=== PATIENT | female | born 1965 | race Caucasian/White ===

== ENCOUNTER 2019-10-14 13:44 | Inpatient (IN) | payer MEDICAID, OTHER ==
[~2019-10-14] VITALS: Ht 157.5 cm; Wt 65.9 kg
--- NOTE | 2019-10-14 13:50 | NUR ---
AAOX3, BIBRA [address] c/o bilateral lower extremities pain, +bruise, s/p fall per patient report x few days ago. Denies ko. RR is even and unlabored with nad noted. skin is warm and dry. BS 205mg/DL in the field. Awaiting md for eval.
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
[2019-10-14] MEDS ORDERED: ONDANSETRON HCL/PF 4 MG/2 ML VIAL IVP ONE (14:30)
[2019-10-14] MEDS ORDERED: MORPHINE SULFATE INJ 2 MG/ML DISP.SYRIN IV ONE (14:30)
[2019-10-14] MEDS ORDERED: ONDANSETRON HCL/PF 4 MG/2 ML VIAL ONE (14:32)
[2019-10-14] MEDS ORDERED: MORPHINE SULFATE INJ 4 MG/ML DISP.SYRIN ONE (14:33)
[2019-10-14 14:46] LABS: BASOPHILS % (AUTO) 0.2 % (0.0-2.0); HEMATOCRIT 40 % (33-45); HEMOGLOBIN 12.5 g/dL (11.5-14.8); LYMPHOCYTES # (AUTO) 0.4 /CMM (0.8-4.8); LYMPHOCYTES % (AUTO) 2.6 % (20.0-44.0); MEAN CORPUSCULAR HGB CONC 31 g/dl (31.0-36.0); MEAN CORPUSCULAR VOLUME 89 fL (82-100); MONOCYTES # (AUTO) 1.4 /CMM (0.1-1.30); MONOCYTES % (AUTO) 9.4 % (2.0-12.0); NEUTROPHILS # (AUTO) 12.8 /CMM (1.8-8.9); NEUTROPHILS % (AUTO) 87.8 % (43.0-81.0); PLATELET COUNT (AUTO) 244 /CMM (150-450); RED BLOOD CELL COUNT(AUTO) 4.49 MIL/uL (4.0-5.2); WHITE BLOOD COUNT (AUTO) 14.6 K/uL (4.3-11.0)
[2019-10-14 14:55] LABS: CALCIUM, SERUM 8.3 mg/dL (8.5-10.1); CREATININE 0.9 mg/dL (0.6-1.3); POTASSIUM 3.4 mmol/L (3.5-5.1)
--- NOTE | 2019-10-14 14:55 | NUR ---
CALLED FARHAT BEDOYA WAS PAGED BY RAIZA
[2019-10-14 15:01] LABS: BILIRUBIN,DIRECT 0.1 mg/dL (0.0-0.2); BILIRUBIN,TOTAL 0.4 mg/dL (0.2-1.0); TOTAL PROTEIN, SERUM 6.6 g/dL (6.4-8.2)
--- NOTE | 2019-10-14 15:06 | NUR ---
CONSENT FOR CONSCIOUS SEDATION FOR RIGHT KNEE CLOSE REDUCTION.
--- NOTE | 2019-10-14 15:07 | NUR ---
CALLED FOR MS BED. AND MOVE SHEET SUBMITTED TO ADMITTING.
[2019-10-14] MEDS ORDERED: PROPOFOL 20 ML IV ONE ×2 (15:10→16:27)
--- NOTE | 2019-10-14 15:14 | NUR ---
AT BEDSIDE. PROPOFOL GIVEN BY .
--- NOTE | 2019-10-14 15:15 | NUR ---
PT IS OUT. MD DOING CLOSED REDUCTION ON R KNEE
--- NOTE | 2019-10-14 15:17 | NUR ---
REDUCTION COMPLETED WITHOUT ANY SUCCESS.
--- NOTE | 2019-10-14 15:21 | NUR ---
PT IS AWAKE. NOT IN RESP DISTRESS.
--- NOTE | 2019-10-14 15:27 | NUR ---
LIZZETTE (FOSTER SISTER) FOR UPDATES [phone]
[2019-10-14] MEDS ORDERED: PROPOFOL 200 MG/20 ML VIAL IV ONE (15:30)
[2019-10-14] MEDS ORDERED: DOCU-141 PO (16:17)
[2019-10-14] MEDS ORDERED: BUSP15TA3 PO (16:17)
[2019-10-14] MEDS ORDERED: OXYC-128 PO (16:17)
[2019-10-14] MEDS ORDERED: FLUO20CA36 PO (16:17)
[2019-10-14] MEDS ORDERED: ARIP10TA9 PO (16:17)
[2019-10-14] MEDS ORDERED: LEVO125T PO (16:17)
[2019-10-14] MEDS ORDERED: AMLO5TAB4 PO (16:17)
[2019-10-14] MEDS ORDERED: PHEN64.8 PO (16:17)
--- NOTE | 2019-10-14 16:17 | NUR ---
FACILITY CONTACT JANELL [phone]
--- NOTE | 2019-10-14 16:22 | NUR ---
FATOU BEDOYA OF DR. VALLES AT BEDSIDE FOR RIGHT KNEE CLOSE REDUCTION. TIME OUT DONE. PROPOFOL 100MG IVP X 1.
--- NOTE | 2019-10-14 16:28 | NUR ---
2ND PROPOFOL 100MG IVP GIVEN.
--- NOTE | 2019-10-14 16:28 | NUR ---
REDUCTION COMPLETED BY FATOU BEDOYA. BILAT PEDAL PULSE APPRECIATED R IS WEAKER THAN THE LEFT. EQUAL IN LENGTH NO ROTATION
--- NOTE | 2019-10-14 16:31 | NUR ---
XRAY AT BEDSIDE
--- NOTE | 2019-10-14 16:35 | NUR ---
PT IS ALREADY AWAKE. NOT IN RESP DISTRESS.
[2019-10-14] MEDS ORDERED: IOHEXOL-350 100 ML VIAL IV ONE (16:56)
[2019-10-14] MEDS ORDERED: IV NS 0.9% 250 ML IV ONE (16:56)
--- NOTE | 2019-10-14 17:45 | NUR ---
PT BACK FROM CT
--- NOTE | 2019-10-14 17:57 | NUR ---
EMT AT BEDSIDE FOR SPLINTING.
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
--- NOTE | 2019-10-14 19:28 | NUR ---
PT IS IN BED RESTING COMFORTABLY. NAD NOTED.
--- NOTE | 2019-10-14 20:28 | NUR ---
CLINICAL TRIAL ASSOCIATE L[place] ANDERSON [phone]
[2019-10-14] MEDS ORDERED: HYDROMORPHONE INJ 2 MG/ML DISP.SYRIN IV ONE (20:30)
[2019-10-14] MEDS ORDERED: HYDROMORPHONE 1 MG/1 ML DISP.SYRIN ONE (20:59)
--- NOTE | 2019-10-14 21:34 | NUR ---
DR. POWELL SPEAKING WITH JULIO CESAR MONQIUE HAT AND CAP DRYING ROOM ATTENDANT
--- NOTE | 2019-10-14 21:41 | NUR ---
Janine toledo in [facility] - 10/14/19 at 2211 by HANK PT WILL BE TRANSFERRED TO [facility] FOR HIGHER LEVEL OF CARE NUMBER FOR REPORT: [phone] AUTH FOR TRANSPORTATION: [id number]
[2019-10-14] MEDS ORDERED: IV D5/0.45 NACL 1,000 ML IV PRN (22:17)
[2019-10-14] MEDS ORDERED: Z GUARD REMEDY 2 OZ OINT TP PRN ×2 (22:30→23:45)
[2019-10-14] MEDS ORDERED: ONDANSETRON HCL/PF 4 MG/2 ML VIAL IVP PRN ×2 (22:30→23:45)
[2019-10-14] MEDS ORDERED: HYDROMORPHONE INJ 2 MG/ML DISP.SYRIN IV PRN (22:30)
[2019-10-14] MEDS ORDERED: ACETAMINOPHEN 325 MG TABLET PO PRN (22:30)
[2019-10-14] MEDS ORDERED: DOCUSATE SODIUM 100 MG CAPSULE PO PRN ×2 (22:30→23:45)
[2019-10-14] MEDS ORDERED: POTASSIUM CHLORIDE 20 MEQ TAB.PRT.SR PO ONE ×2 (23:00)
--- NOTE | 2019-10-14 23:01 | NUR ---
BED ASSIGNMENT 101
--- NOTE | 2019-10-14 23:13 | NUR ---
REPORT GIVEN TO CALEB WHITING FOR DIDIER.
--- NOTE | 2019-10-14 23:15 | NUR ---
Rec'd report from CALEB Crum for DIDIER.
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
--- NOTE | 2019-10-14 23:27 | NUR ---
PT TRANSPORTED TO UNIT ON [place] WITH EMT AND RN W/ ACLS PROTOCOL. NAD NOTED DURING TRANSPORT
[2019-10-14 23:29] VITALS: BP 133/67
--- NOTE | 2019-10-15 00:05 | NUR ---
0005 PATIENT'S RIGHT PEDAL AND POPLITEAL PULSES NOTED PER DOPPLER. RIGHT LEG NOTED SWOLLEN AND WITH SCATTERED BRUISES. PATIENT ABLE TO WIGGLE TOES WHEN PROMPTED. RIGHT FOOT WARM TO TOUCH. IMMOBILIZER IN PLACE. WILL CONTINUE TO MONITOR.
[2019-10-15] MEDS: IV D5/0.45 NACL 1,000 ML IV PRN ×2 (01:23→18:27)
[2019-10-15 04:00] VITALS: BP 164/83
--- NOTE | 2019-10-15 04:30 | NUR ---
0430 RIGHT PEDAL, POPLITEAL, AND POSTERIOR TIBIAL PULSES APPRECIATED PER DOPPLER. RIGHT LEG STILL WITH SWELLING NOTED. WARM TO TOUCH WHEN CHECKED. IMMOBILIZER REMAINS IN PLACE. PATIENT ASLEEP AT THIS TIME. EASILY AROUSABLE TO NAME. NO COMPLAIN OF PAIN WHEN ASKED. NO C/O SOB OR DIFFICULTY BREATHING.
--- NOTE | 2019-10-15 06:54 | NUR ---
RN CLOSING NOTES: Pt remained stable throughout shift. No acute changes noted. On isolation for R/O Covid. On 2LPM NC, no SOB or respiratory distress noted. NPO except meds. IV site on LAC #18 patent with D5 1/2NS infusing at 75 ml/hr. Kept clean/dry. All meds administered as ordered. Safety measures in place. Will endorse to CALEB Daigle for DIDIER.
[2019-10-15 07:58] VITALS: BP 150/93
--- NOTE | 2019-10-15 08:00 | NUR ---
MS RN AM NOTES RECEIVED PT AWAKE, ALERT AND ORIENTED. FACE MASK ON FOR COVID PRECAUTION. PATIENT WITH IMMOBILIZER ON RIGHT LOWER EXTREMITY. DX RIGHT KNEE DISLOCATION/FRACTURE, RIGHT ANKLE FRACTURE. WITH RIGHT LEG WITH SWELLING AND BRUISING. PATIENT WITH C/O PAIN ON AFFECTED EXTREMITY. ABLE TO WIGGLE TOES WITHOUT DIFFICULTY. LEG WARM TO TOUCH. UNABLE TO APPRECIATE RIGHT LEG PULSES PER PALPATION. FOR RT PEDAL AND POPLITEAL PULSE CHECK VIA DOPPLER CHECK EVERY 4 HRS. PATIENT REFUSING TO TURN FOR SKIN CHECK. CALL LIGHT PLACED WITHIN REACH AND INSTRUCTED TO CALL FOR ASSISTANCE.
--- NOTE | 2019-10-15 08:30 | NUR ---
PATIENT'S RIGHT PEDAL AND POPLITEAL PULSES PRESENT WHEN CHECKED WITH DOPPLER. WITH RIGHT LEG SWELLING AND WITH SCATTERED PURPLISH BRUISES. PATIENT ABLE TO WIGGLE TOES WHEN PROMPTED. RIGHT FOOT WARM TO TOUCH. RT KNEE IMMOBILIZER IN PLACE. WILL MONITOR.
[2019-10-15] MEDS: LEVOTHYROXINE SODIUM 125 MCG TABLET PO SCH (08:56)
[2019-10-15] MEDS: AMLODIPINE BESYLATE 5 MG TABLET PO SCH (08:56)
[2019-10-15] MEDS: PHENOBARBITAL 30 MG TABLET PO SCH (08:57)
[2019-10-15] MEDS: busPIRone 5 MG TABLET PO SCH ×2 (08:57→16:44)
[2019-10-15] MEDS: FLUOXETINE HCL 20 MG CAPSULE PO SCH (08:57)
[2019-10-15] MEDS: ARIPIPRAZOLE 5 MG TABLET PO SCH ×2 (08:57→16:44)
[2019-10-15] MEDS: HYDROMORPHONE INJ 2 MG/ML DISP.SYRIN IV PRN ×2 (08:58→18:13)
[2019-10-15] MEDS ORDERED: AMLODIPINE BESYLATE 5 MG TABLET PO SCH (09:00)
[2019-10-15] MEDS ORDERED: FLUOXETINE HCL 20 MG CAPSULE PO SCH (09:00)
[2019-10-15] MEDS ORDERED: LEVOTHYROXINE SODIUM 125 MCG TABLET PO SCH (09:00)
--- NOTE | 2019-10-15 11:06 | NUR ---
Acid Regenerator spoke with Delia from Case Management about this patient. Pt is not homeless and currently resides at [facility]. No social worker palliative care needs are requested at this time. medical staff services manager to remain available for support as needed.
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
[2019-10-15 12:00] VITALS: BP 130/72
[2019-10-15 12:37] LABS: BASOPHILS % (AUTO) 0.1 % (0.0-2.0); EOSINOPHILS % (AUTO) 1.2 % (0.0-6.0); HEMATOCRIT 42 % (33-45); HEMOGLOBIN 13.2 g/dL (11.5-14.8); LYMPHOCYTES % (AUTO) 10.4 % (20.0-44.0); MEAN CORPUSCULAR HGB CONC 32 g/dl (31.0-36.0); MEAN CORPUSCULAR VOLUME 88 fL (82-100); MONOCYTES # (AUTO) 1.3 /CMM (0.1-1.30); MONOCYTES % (AUTO) 13.8 % (2.0-12.0); NEUTROPHILS # (AUTO) 7.1 /CMM (1.8-8.9); NEUTROPHILS % (AUTO) 74.5 % (43.0-81.0); PLATELET COUNT (AUTO) 234 /CMM (150-450); RED BLOOD CELL COUNT(AUTO) 4.76 MIL/uL (4.0-5.2); WHITE BLOOD COUNT (AUTO) 9.6 K/uL (4.3-11.0)
[2019-10-15 12:52] LABS: ALBUMIN 2.5 g/dL (3.4-5.0); BILIRUBIN,TOTAL 0.3 mg/dL (0.2-1.0); CALCIUM, SERUM 7.7 mg/dL (8.5-10.1); CREATININE 0.7 mg/dL (0.6-1.3); MAGNESIUM 2.2 mg/dL (1.8-2.4); PHOSPHORUS 3.3 mg/dL (2.5-4.9); POTASSIUM 4.2 mmol/L (3.5-5.1); TOTAL PROTEIN, SERUM 5.7 g/dL (6.4-8.2)
--- NOTE | 2019-10-15 12:58 | NUR ---
DR SEGUNDO (VASCULAR SURGEON) CALLED AND RELAYED CTA OF THE KNEE RESULT. DR SEGUNDO STATED TO WAIT TILL PT IS COVID NEGATIVE AND THAT IS THE TIME HE WILL CHECK ON THE PT. DR SEGUNDO STATED THAT HE WILL CALL ON JENNIFER BLACKMON NP (HOSPITALIST FOR TODAY) AND WILL NOTIFY HER.
[2019-10-15 13:00] LABS: THYROID STIMULATING HORMONE 3.731 uIU/mL (0.358-3.74)
--- NOTE | 2019-10-15 15:00 | NUR ---
PT WAS SEEN AND CHECKED BY DR SEGUNDO WHO STATED THAT HE'S NOT GOING TO DO ANY PROCEDURE FOR NOW AND THAT HE SPOKED TO WELL WHO STATED THAT DR VALLES IS NOT GOING TO DO ANY SX FOR NOW EITHER. WILL RESUME PT'S CARDIAC DIET.
[2019-10-15] MEDS: ACETAMINOPHEN 325 MG TABLET PO PRN (16:44)
--- NOTE | 2019-10-15 18:47 | NUR ---
PT RESTING IN BED SLEEPING BUT AROUSABLE.PAIN MGT EFFECTIVE. ATE 100%DINNER. PT HAS EPISODES OF RESTLESSNESS(HX OF SCHIZO) SCREAMING THAT SHE NEEDS A TAXI TO GO HOME. REORIENTATION GIVEN NEEDED THEN SHE CALMS DOWN.CALL LIGHT PLACED WITHIN REACH.
--- NOTE | 2019-10-15 19:15 | NUR ---
RN OPENING NOTES: RECEIVED PT A/OX4 IN BED RESTING COMFORTABLY. PATIENT IN NO S/SX OF ACUTE DISTRESS AT THIS TIME. NO SOB NOTED. PATIENT'S BREATHING IS EVEN AND UNLABORED. PATIENT IS ON RA; TOLERATING WELL.PATIENT ON MED SRUG STATUS. NOTED IV SITE ON L AC #18; PATENT IN INTACT,NO S/S OF INFECTION OR INFILTRATION; WITH RUNNING IVF OF D5 1/2 NS @75MLS/HR PATIENT IS BEDBOUD WITH R LEG BRACE SPLINT. PATIENT ON CARDIAC DIET. SAFETY MEASURES HAVE BEEN PROVIDED AND IMPLEMENTED. PATIENT BED ALARM IS ON. HEAD OF BED ELEVATED. BED IS LOCKED, IN LOWEST POSITION AND SIDE RAILS UP. CALL LIGHT WITHIN REACH OF THE PATIENT. ISOLATION PRECAUTIONS IN PLACE. WILL CONTINUE TO MONITOR AND REASSESS FOR ANY CHANGES.
--- NOTE | 2019-10-15 19:44 | NUR ---
RN NOTES CALLED [facility] @[phone], SPOKE WITH JULIO CESAR INFORMED THAT PATIENT'S COVID TEST CAME OUT NEGATIVE @1601. VERIFIED TO FROM MD IF PATIENT CAN ALREADY BE TRANSFERRED TO MED SURG UNIT AND CHANGE STATUS FROM TELE TO M/S . HE SAID YES. WILL MAKE ORDER FOR CHANGE OF STATUS.
[2019-10-15 20:00] VITALS: BP 129/73
--- NOTE | 2019-10-15 21:21 | NUR ---
TELE/RN NOTES PROVIDED REPORT TO COREY. PATIENT IS ALERT AND ORIENTED X4 UKRAINIAN SPEAKING. PATIENT MOST RECENT V/S TAKEN AND RECORDED BP(129/73 ) T (98.1) HR (77) RR (20). PATIENT ON RA WITH IV LINE @ L AC #18 ; RUNNING IVF OF D5 1/2 NS AT 75 ML/HR ON INFUSING WELL. PT WITH R LEG BRACE SPLINT. PATIENT TRANSFERRED TO MEDICAL SURGICAL ROOM 321 BED #2 VIA MEDICAL BED. ALL PATIENT BELONGINGS TRANSFERRED WITH THE PATIENT. PATIENT SAFETY WAS MAINTAINED, MIGEL ELLIS RECEIVED THE PATIENT AND WILL CONTINUE CARE.
--- NOTE | 2019-10-15 21:30 | NUR ---
MS/RN NOTES: RECEIVED REPORT FROM ROSA RN. PT ARRIVED OT THE UNIT VIA GURNEY. PATIENT IS ALERT AND ORIENTED X4. ROMANIAN SPEAKING. CONTRABAND PLACED IN THE CABINET. INITIAL V/S TAKEN AND WNL. PATIENT ON RA WITH IV LINE @ L AC #18 ; RUNNING IVF OF D5 1/2 NS AT 75 ML/HR ON INFUSING WELL. R LEG BRACE SPLINT PRESENT. ALL PATIENT BELONGINGS CHECKED BY TRAY SERVER. PATIENT SAFETY WAS MAINTAINED, BE DIN LOW, LOCKED POSITION WITH SR UP X2. WILL CONTINUE CARE.
[2019-10-15 22:51] VITALS: BP 129/72
--- NOTE | 2019-10-16 03:00 | NUR ---
MS RN NOTES RECEIVED PATIENT ON SOUND ASLEEP,BREATHING EASY,NO SOB.KEPT WARM AND COMFORTABLE.WILL CONTINUE TO MONITOR.
--- NOTE | 2019-10-16 07:30 | NUR ---
MS/RN NOTE THE PATIENT IS RECEIVED IN BED. THE PATIENT IS ALERT AND ORIENTED X3. RECEIVING OXYGEN AT 2L/MIN VIA [employer] CANNULA AND DENIES SOB. RESPIRATION REGULAR AND UNLABORED. DENIES PAIN. NOTED RIGHT LEFT WITH BRACE. LEG WARM TO TOUCH. RIGHT LOWER LEG AND KNEE SWOLLEN. PATIENT DENIES TINGLING OR NUMBNESS ON THE EXTREMITIES. LAC IV PATENT AND D5 1/2 NS INFUSING AT 75ML/HR. NO S/S INFILTRATION NOTED. BED LOW AND LOCKED. SIDE RAILS UP X3. CALL LIGHT WITHIN EACH. WILL CONTINUE TO MONITOR.
--- NOTE | 2019-10-16 07:31 | NUR ---
MS/RN CLOSING NOTES: PT REMAINS ALERT AND ORIENTED X4. NO SOB NOTED. NO S/S OF DISTRESS. BREATHING EVEN AND UNLABORED. ON ROOM AIR. IV LINE @ L AC #18 ; RUNNING IVF OF D5 1/2 NS AT 75 ML/HR ON INFUSING WELL. R LEG BRACE SPLINT PRESENT. POPLITEAL PULSE AND PEDAL PULSE CHECKED Q4HRS ORDERED WITH DOPPLER, PT THREATENING TO LEAVE AMA. PATIENT SAFETY WAS MAINTAINED, ENDORSED TO DAY SHIFT RN FOR DIDIER.
[2019-10-16 07:35] LABS: BASOPHILS % (AUTO) 0.2 % (0.0-2.0); EOSINOPHILS % (AUTO) 2.8 % (0.0-6.0); HEMATOCRIT 42 % (33-45); HEMOGLOBIN 13.6 g/dL (11.5-14.8); LYMPHOCYTES # (AUTO) 1.1 /CMM (0.8-4.8); LYMPHOCYTES % (AUTO) 11.3 % (20.0-44.0); MEAN CORPUSCULAR HGB CONC 32 g/dl (31.0-36.0); MEAN CORPUSCULAR VOLUME 88 fL (82-100); MONOCYTES # (AUTO) 1.1 /CMM (0.1-1.30); MONOCYTES % (AUTO) 12.3 % (2.0-12.0); NEUTROPHILS # (AUTO) 6.9 /CMM (1.8-8.9); NEUTROPHILS % (AUTO) 73.4 % (43.0-81.0); PLATELET COUNT (AUTO) 248 /CMM (150-450); RED BLOOD CELL COUNT(AUTO) 4.82 MIL/uL (4.0-5.2); WHITE BLOOD COUNT (AUTO) 9.4 K/uL (4.3-11.0)
[2019-10-16 07:56] LABS: CALCIUM, SERUM 8.1 mg/dL (8.5-10.1); CREATININE 0.5 mg/dL (0.6-1.3); MAGNESIUM 1.9 mg/dL (1.8-2.4); PHOSPHORUS 3.1 mg/dL (2.5-4.9); POTASSIUM 4.1 mmol/L (3.5-5.1)
[2019-10-16 08:00] VITALS: BP 165/76
--- NOTE | 2019-10-16 08:00 | NUR ---
MS/RN NOTE RIGHT LEG WARM TO TOUCH. ABLE TO WIGGLE TOES WITH NO DIFFICULTY. DENIES NUMBNESS OR TINGLING IN RIGHT LEG. USING DOPPLER CHECKED FOR PEDAL PULSES AND NOTED DORSALIS PEDAL PULSES PRESENT BILATERALLY. NO NEURO DEFICIENCY NOTED ON ANY OF THE EXTREMITIES. WILL CONTINUE TO MONITOR.
[2019-10-16] MEDS: FLUOXETINE HCL 20 MG CAPSULE PO SCH (09:21)
[2019-10-16] MEDS: ARIPIPRAZOLE 5 MG TABLET PO SCH ×2 (09:21→16:49)
[2019-10-16] MEDS: PHENOBARBITAL 30 MG TABLET PO SCH (09:21)
[2019-10-16] MEDS: LEVOTHYROXINE SODIUM 125 MCG TABLET PO SCH (09:21)
[2019-10-16] MEDS: busPIRone 5 MG TABLET PO SCH ×2 (09:21→16:49)
[2019-10-16] MEDS: AMLODIPINE BESYLATE 5 MG TABLET PO SCH (09:22)
[2019-10-16 16:00] VITALS: BP 143/84
[2019-10-16] MEDS: IV D5/0.45 NACL 1,000 ML IV PRN (16:57)
[2019-10-16] MEDS: HYDROMORPHONE INJ 2 MG/ML DISP.SYRIN IV PRN (16:57)
--- NOTE | 2019-10-16 18:01 | NUR ---
MS/RN NOTE THE PATIENT IS ALERT AND ORIENTED X3. IN ROOM AIR AND SATURATION IS AT 95%. RESPIRATION REGULAR AND UNLABORED. DENIES SOB. DENIES PAIN. RIGHT LEG WITH A BRACE. RIGHT LEG WARM TO TOUCH. ABLE TO WIGGLE TOES WITH NO DIFFICULTY. DENIES NUMBNESS OR TINGLING IN RIGHT LEG. USING DOPPLER CHECKED FOR PEDAL PULSES AND NOTED DORSALIS PEDAL PULSES PRESENT BILATERALLY. NO NEURO DEFICIENCY NOTED ON ANY OF THE EXTREMITIES. WILL CONTINUE TO MONITOR. LAC G 18 PATENT AND D5 1/2 NS INFUSING AT 75ML/HR. NO S/S INFILTRATION NOTED. BED LOW AND LOCKED. SIDE RAILS UP X3. CALL LIGHT WITHIN REACH. WILL ENDORSE TO COREMAKING SUPERVISOR.
--- NOTE | 2019-10-16 19:59 | NUR ---
MS RN OPENING NOTE: Patient in bed awake and alert. On room air. No SOB noted, breathing equal and unlabored. Patient is in pain. Her pain is on the right leg and rates he pain 5 on a 0-10 scale. Offered pain medication but patient refused. Leg brace noted on right leg with right foot dressing/abd pad. Leg brace intact and foot dressing is intact and dry. Noted left knee scrapes, red and black in color with no exudate. Noted BLE edema. Patient able move left and right toes. BLE cap refill <3. Legs are warm to touch. Noted left AC 18g IV access. Flushes well, patent, no redness or infiltration. Safety precaution is in place, bed is in the lowest level, bed is locked, alarm is on, side rails x2 are up, and call light is within reach. Will continue to monitor.
[2019-10-16 20:00] VITALS: BP 146/86
[2019-10-16 20:44] VITALS: BP 146/86
[2019-10-16] MEDS: ACETAMINOPHEN 325 MG TABLET PO PRN (21:52)
--- NOTE | 2019-10-16 21:52 | NUR ---
MS RN NOTE: Patient complains of right leg pain. Patient rates pain 3 on a 0-10 scale and describes it as aching. Administered PRN Tylenol per order. Will continue to monitor.
--- NOTE | 2019-10-17 | NUR ---
MS RN NOTE: Lower extremity neuro and pulse assessment. Patient is able to wiggle her toes without difficulty. Patient denies pain at this time. Right leg and right ankle immobilizer are intact. Patient denies any numbness or tingling on both extremities. Capillary refill less than 3 seconds. Pedal and dorsalis pedis pulses present bilaterally. Will continue to monitor.
--- NOTE | 2019-10-17 04:00 | NUR ---
MS RN NOTE: Lower extremity neuro and pulse check. Patient able to wiggle toes bilaterally. Right leg and right ankle immobilizer are intact. Patient denies any numbness or tingling. Cap refill less than 3 seconds. Pedal and dorsalis pedis pulses present bilaterally. Will continue to monitor.
[2019-10-17] MEDS: LEVOTHYROXINE SODIUM 125 MCG TABLET PO SCH (06:48)
[2019-10-17 07:23] LABS: BASOPHILS % (AUTO) 0.4 % (0.0-2.0); EOSINOPHILS % (AUTO) 2.3 % (0.0-6.0); HEMATOCRIT 45 % (33-45); HEMOGLOBIN 14.1 g/dL (11.5-14.8); LYMPHOCYTES # (AUTO) 0.9 /CMM (0.8-4.8); LYMPHOCYTES % (AUTO) 11.3 % (20.0-44.0); MEAN CORPUSCULAR HGB CONC 32 g/dl (31.0-36.0); MEAN CORPUSCULAR VOLUME 88 fL (82-100); MONOCYTES # (AUTO) 0.9 /CMM (0.1-1.30); MONOCYTES % (AUTO) 10.2 % (2.0-12.0); NEUTROPHILS # (AUTO) 6.4 /CMM (1.8-8.9); NEUTROPHILS % (AUTO) 75.8 % (43.0-81.0); PLATELET COUNT (AUTO) 291 /CMM (150-450); RED BLOOD CELL COUNT(AUTO) 5.07 MIL/uL (4.0-5.2); WHITE BLOOD COUNT (AUTO) 8.4 K/uL (4.3-11.0)
--- NOTE | 2019-10-17 07:24 | NUR ---
MS RN CLOSING NOTE: Patient in bed awake and alert. On room air. No SOB noted, breathing equal and unlabored. Patient able move left and right toes. BLE cap refill <3. Legs are warm to touch. Safety precaution is in place, bed is in the lowest level, bed is locked, alarm is on, side rails x2 are up, and call light is within reach. Will endorse to next shift.
[2019-10-17 07:30] LABS: CALCIUM, SERUM 8.2 mg/dL (8.5-10.1); CREATININE 0.6 mg/dL (0.6-1.3); PHOSPHORUS 3.3 mg/dL (2.5-4.9)
[2019-10-17] MEDS: ARIPIPRAZOLE 5 MG TABLET PO SCH ×2 (08:41→16:26)
[2019-10-17] MEDS: busPIRone 5 MG TABLET PO SCH ×2 (08:42→16:26)
[2019-10-17] MEDS: AMLODIPINE BESYLATE 5 MG TABLET PO SCH (08:43)
[2019-10-17] MEDS: FLUOXETINE HCL 20 MG CAPSULE PO SCH (08:43)
[2019-10-17] MEDS: PHENOBARBITAL 30 MG TABLET PO SCH (08:43)
[2019-10-17] MEDS: HYDROMORPHONE INJ 2 MG/ML DISP.SYRIN IV PRN ×2 (14:57→21:52)
--- NOTE | 2019-10-17 17:18 | NUR ---
MS/RN NOTE ROGE BLACKMON IS MADE AWARE THAT THE PATIENT IS NOT ON ANY BLOOD THINNER DESPITE VTE SCORE OF 5. PER STOCK WORKER AND DELIVERER TO FOLLOW UP WITH TREY BRADFORD. RECEIVED AN ORDER FROM SANCHEZ LAINEZ ASPIRIN 325 MG PO QD TO START TOMORROW. NOTED AND CARRIED OUT.
--- NOTE | 2019-10-17 19:00 | NUR ---
MS/RN NOTE RIGHT LEG WARM TO TOUCH. ABLE TO WIGGLE TOES WITH NO DIFFICULTY. DENIES NUMBNESS OR TINGLING IN RIGHT LEG. USING DOPPLER CHECKED FOR PEDAL PULSES AND NOTED DORSALIS PEDAL PULSES PRESENT BILATERALLY. NO NEURO DEFICIENCY NOTED ON ANY OF THE EXTREMITIES. NO ABNORMALLITIES NOTED DURING THE SHIFT.
--- NOTE | 2019-10-17 19:07 | NUR ---
RN MS OPENING NOTES RECEIVED PATIENT IN BED AWAKE ALERT AND ORIENTED X3, NOTED FORGETFUL REPEATS SAME QUESTIONS OFTEN. IMMOBOLIZER/SPLIT TO RIGHT LEG INTACT, PULSES ASSESSED WITH DOPPLER AND PRESENT AUDIBLE. IV SITE TO LEFT AC #18 G INTACT AND PATENT, IVF RUNNING ORDERED, ORIENTED TO STAFF AND CALL LIGHT AND KEPT WITHIN REACH, SAFETY PRECAUTIONS RENDERED, LOW BED AND LOCKED, BED ALARM INTACT, DENIES ANY PAIN AT THIS TIME, FLUIDS OFFERED, NEEDS REINFORCEMENT FOR PERINEAL CARE. ALL LINENS CHANGED AND PERINEAL CARE PROVIDED. WILL CONTINUE TO ASSESS AND ATTEND TO NEEDS REMAINS CLEAN DRY AND COMFORTABLE AT THIS TIME.
--- NOTE | 2019-10-17 19:07 | NUR ---
DENIES ANY TINGLING OR NUMBNESS TO RIGHT LEG AND FOOT.
[2019-10-17] MEDS: IV D5/0.45 NACL 1,000 ML IV PRN (19:24)
[2019-10-17 20:00] VITALS: BP 165/86
[2019-10-17 20:38] VITALS: BP 166/86
--- NOTE | 2019-10-17 21:52 | NUR ---
rn ms notes patient complained of pain to right leg states 10/ can i have a pain shot. dilaudid prn offered as ordered, vs wnl , given as ordered, patient repositioned. medication wasted, discarded and recorded witness with another rn jeanneen. will continue to monitor for effectiveness.
[2019-10-18] VITALS: BP 151/85
--- NOTE | 2019-10-18 06:44 | NUR ---
RN MS CLOSING NOTES PATIENT IN BED AWAKE ALERT AND ORIENTED X3, NOTED FORGETFUL REPEATS SAME QUESTIONS OFTEN. IMMOBOLIZER/SPLIT TO RIGHT LEG INTACT, PULSES ASSESSED WITH DOPPLER AND PRESENT, AUDIBLE DENIES ANY FEELING OF TINGLING OR NUMBNESS. IV SITE TO LEFT AC #18 G INTACT AND PATENT, IVF RUNNING ORDERED, CALL LIGHT KEPT WITHIN REACH, SAFETY PRECAUTIONS RENDERED, LOW BED AND LOCKED, BED ALARM INTACT, DENIES ANY PAIN AT THIS TIME, FLUIDS OFFERED, NEEDS REINFORCEMENT FOR PERINEAL CARE PATIENT IS REFUSIVE ATT TIME TO PERINEAL CARE. ALL LINENS CHANGED AND PERINEAL CARE PROVIDED. WILL CONTINUE TO ASSESS AND ATTEND TO NEEDS REMAINS CLEAN DRY AND COMFORTABLE AT THIS TIME WILL ENDORSE TO NEXT SHIFT.
--- NOTE | 2019-10-18 07:15 | NUR ---
RECEIVED PATIENT AWAKE , ALERT AND ORIENTED X3 , ANXIOUS ;WILLING TO GO BACK TO FACILITY.RIGHT LEG WARM TO TOUCH. ABLE TO WIGGLE TOES WITH NO DIFFICULTY. DENIES NUMBNESS OR TINGLING IN RIGHT LEG. PEDAL PULSES AND DORSALIS PEDAL PULSES PRESENT BILATERALLY; USING DOPPLER. NO NEURO DEFICIENCY NOTED.
[2019-10-18] MEDS: LEVOTHYROXINE SODIUM 125 MCG TABLET PO SCH (07:22)
[2019-10-18 08:00] VITALS: BP 169/96
[2019-10-18] MEDS: ASPIRIN 325 MG TABLET PO SCH (08:50)
[2019-10-18] MEDS: ARIPIPRAZOLE 5 MG TABLET PO SCH ×2 (08:50→17:01)
[2019-10-18] MEDS: FLUOXETINE HCL 20 MG CAPSULE PO SCH (08:51)
[2019-10-18] MEDS: busPIRone 5 MG TABLET PO SCH ×2 (08:51→17:01)
[2019-10-18] MEDS: PHENOBARBITAL 30 MG TABLET PO SCH (08:51)
[2019-10-18] MEDS: AMLODIPINE BESYLATE 5 MG TABLET PO SCH (09:58)
--- NOTE | 2019-10-18 12:00 | NUR ---
Patient refusing to be cleaned and changed.
[2019-10-18 16:00] VITALS: BP 161/92
--- NOTE | 2019-10-18 18:41 | NUR ---
Patient resting in bed comfortably. No respiratory distress, no complain of pain. Patient changed 4 times , but refused to be cleaned. Explained that chucks needs to be changed on time ; otherwise patient will have skin breakouts. Reinforcement needed. Will endorse to next shift for DIDIER.
--- NOTE | 2019-10-18 19:07 | NUR ---
RN MS OPENING NOTES RECEIVED PATIENT IN BED AWAKE ALERT AND ORIENTED X3, NOTED FORGETFUL REPEATS SAME QUESTIONS OFTEN. IMMOBOLIZER/SPLIT TO RIGHT LEG INTACT, PULSES ASSESSED WITH DOPPLER AND PRESENT AUDIBLE.DENIES ANY TINGLING OR NUMBNESS, IV SITE TO LEFT AC #18 G INTACT AND PATENT, IVF RUNNING ORDERED, ORIENTED TO STAFF AND CALL LIGHT AND KEPT WITHIN REACH, SAFETY PRECAUTIONS RENDERED, LOW BED AND LOCKED, BED ALARM INTACT, DENIES ANY PAIN AT THIS TIME, FLUIDS OFFERED,SNACK OFFERED,WILL CONTINUE TO ASSESS AND ATTEND TO NEEDS REMAINS CLEAN DRY AND COMFORTABLE AT THIS TIME.
--- NOTE | 2019-10-18 19:27 | NUR ---
rn ms notes patient complained of pain to right leg states 10/12 can i have a pain shot. vs taken wnl. dilaudid given as ordered, witnessed and wasted with another rn antonette. will continue to monitor for effectiveness, lights dimmed, tv is on.
[2019-10-18] MEDS: HYDROMORPHONE INJ 2 MG/ML DISP.SYRIN IV PRN (19:28)
[2019-10-18] MEDS: IV D5/0.45 NACL 1,000 ML IV PRN (19:34)
[2019-10-18 20:22] VITALS: BP 158/89
[2019-10-18 20:40] VITALS: BP 158/89
[2019-10-18] MEDS: ACETAMINOPHEN 325 MG TABLET PO PRN (22:42)
--- NOTE | 2019-10-18 22:45 | NUR ---
rn ms notes patient complained of pain to right leg, stated "5/10 can i have some pain medication". tylenol offered patient agreed, given as ordered, will continue to monitor. heat pack requested and applied to knee area. patient repositioned, and perineal care provided, will continue to monitor.
[2019-10-19] MEDS: HYDROMORPHONE INJ 2 MG/ML DISP.SYRIN IV PRN (00:32)
--- NOTE | 2019-10-19 00:35 | NUR ---
rn ms notes patient complained of pain to right leg, stated "10/10 can i have some pain medication". dilaudid given as ordered , witnessed and wasted with another rn will continue to monitor. heat pack requested and applied to knee area. patient repositioned, and perineal care provided, will continue to monitor.
--- NOTE | 2019-10-19 05:54 | NUR ---
RN MS CLOSING NOTES PATIENT IN BED AWAKE ALERT AND ORIENTED X3, NOTED FORGETFUL REPEATS SAME QUESTIONS OFTEN. IMMOBOLIZER/SPLIT TO RIGHT LEG INTACT, PULSES AND NEURO ASSESSED WITH DOPPLER ORDERED AND PRESENT AUDIBLE.DENIES ANY TINGLING OR NUMBNESS, IV SITE TO LEFT AC #18 G INTACT AND PATENT, IVF RUNNING ORDERED, CALL LIGHT KEPT WITHIN REACH, SAFETY PRECAUTIONS RENDERED, LOW BED AND LOCKED, BED ALARM INTACT, DENIES ANY PAIN AT THIS TIME, FLUIDS OFFERED,SNACK OFFERED,WILL CONTINUE TO ASSESS AND ATTEND TO NEEDS REMAINS CLEAN DRY AND COMFORTABLE AT THIS TIME AND WILL ENDORSE TO NEXT SHIFT, PATIENT WAS TRANSFERRED TO ROOM 322-1 WITH ALL PERSONAL BELONGINGS, MEDICATIONS AND CHART.
--- NOTE | 2019-10-19 05:56 | NUR ---
DOPPLER ALSO TRANSFERRED WITH PATIENT
[2019-10-19 08:00] VITALS: BP 184/89
[2019-10-19] MEDS: ARIPIPRAZOLE 5 MG TABLET PO SCH ×2 (08:33→16:29)
[2019-10-19] MEDS: ASPIRIN 325 MG TABLET PO SCH (08:33)
[2019-10-19] MEDS: FLUOXETINE HCL 20 MG CAPSULE PO SCH (08:33)
[2019-10-19] MEDS: LEVOTHYROXINE SODIUM 125 MCG TABLET PO SCH (08:34)
[2019-10-19] MEDS: PHENOBARBITAL 30 MG TABLET PO SCH (08:34)
[2019-10-19] MEDS: busPIRone 5 MG TABLET PO SCH ×2 (08:34→16:28)
[2019-10-19] MEDS: AMLODIPINE BESYLATE 5 MG TABLET PO SCH (08:35)
--- NOTE | 2019-10-19 14:00 | NUR ---
MS RN NOTES PATIENT DEMANDING TO LEAVE AMA. EXPLANATION PROVIDED OF RISKS OF LEAVING AMA DUE TO HER HEALTH CONDITION. PATIENT REFUSING TO LISTEN, DEMANDING TO LEAVE. WALKER ORDERED FROM CENTRAL SUPPLY. AMA FORM SIGNED.DONATION CLOTHS PROVIDED. MADE AWARE.
--- NOTE | 2019-10-19 14:15 | NUR ---
MS RN NOTES ENCOURAGED PATIENT TO ATTEMPT TO WALK WITH WALKER, PATIENT UNABLE TO TAKE STEPS. PATIENT AGREED CONTINUE HOSPITALIZATION. WILL CONTINUE TO MONITOR.
--- NOTE | 2019-10-19 15:30 | NUR ---
MS RN NOTES PATIENT NOTED SCREAMING AND OUT OF BED DEMANDING TO LEAVE AMA. NOTIFIED JENNIFER HEARING AID MECHANIC ORDERS OBTAINED FOR CRISIS TEAM. CALLED CRISIS TEAM. HAD CASE MANAGEMENT SPEAK TO PATIENT. WAITING FOR EVAL FROM CRISIS TEAM. PATIENT UNABLE TO AMBULATE. PATIENT REMOVED PERIPHERAL IV. WAITING FOR CRISIS TEAM.
[2019-10-19 16:00] VITALS: BP 180/74
--- NOTE | 2019-10-19 18:26 | NUR ---
SPOKE TO ALEXY CRISIS TEAM BILLING CLERK, STATES SHE WILL BE COMING TO SEE PATIENT.
--- NOTE | 2019-10-19 18:44 | NUR ---
MS RN NOTES PATIENT IN BED SLEEPING. ALL DUE MEDICATING ADMINISTERED. ALL NEEDS MET. PATIENT WITH NO PERIPHERAL IV. WILL ENDORSE CARE TO PM SHIFT.
--- NOTE | 2019-10-19 19:50 | NUR ---
MS RN OPENING NOTS PATIENT RECEIVED RESTING IN BED A/O X 3. STABLE ON RA WITH BREATHING EVEN AND UNLABORED, NO SOB NOTED. NO SIGNS OF ACUTE DISTRESS. NO IV ACCESS. SAFETY PRECAUTIONS IN PLACE WITH BED IN LOWEST POSITION, CALL LIGHT WITHIN REACH, BREAKS ON, SIDE RAILS UP. WILL CONTINUE TO MONITOR THROUGHOUT THE NIGHT.
[2019-10-19 20:00] VITALS: BP 153/79
--- NOTE | 2019-10-19 22:02 | NUR ---
MS RN NOTES RLE PULSE CHECK WITH DOPPLER, PULSE PRESENT, PATIENT ABLE TO MOVE TOES. NO COMPLAINTS OF PAIN AT THE MOMENT, JUST SLIGHT DISCOMFORT. WILL CONTINUE TO MONITOR.
[2019-10-20] MEDS: HYDROMORPHONE INJ 2 MG/ML DISP.SYRIN IV PRN ×3 (00:06→21:52)
[2019-10-20] MEDS: IV D5/0.45 NACL 1,000 ML IV PRN (00:08)
--- NOTE | 2019-10-20 06:40 | NUR ---
RN NOTES PEDAL PULSE PRESENT, PATIENT ABLE TO MOVE TOES. WILL CONTINUE TO MONITOR THROUGHOUT THE NIGHT.
--- NOTE | 2019-10-20 06:48 | NUR ---
MS RN CLOSING NOTS PATIENT RESTING IN BED A/O X 3. STABLE ON RA WITH BREATHING EVEN AND UNLABORED, NO SOB NOTED. NO SIGNS OF ACUTE DISTRESS. NO COMPLAINTS OF PAIN OR DISCOMFORT AT THE MOMENT. IV LOCATED ON L WRIST #22 RUNNING D51/2 NS @ 75 ML/HR.R LEG IMMOBILIZER NOTED AND IN PLACE. SAFETY PRECAUTIONS IN PLACE WITH BED IN LOWEST POSITION, CALL LIGHT WITHIN REACH, BREAKS ON, SIDE RAILS UP. ALL NEEDS ATTENDED TO. WILL ENDORSE TO ONCOMING SHIFT ABOUT DIDIER.
[2019-10-20] MEDS: LEVOTHYROXINE SODIUM 125 MCG TABLET PO SCH (07:18)
[2019-10-20] MEDS: ASPIRIN 325 MG TABLET PO SCH (08:17)
[2019-10-20] MEDS: ARIPIPRAZOLE 5 MG TABLET PO SCH ×2 (08:17→18:08)
[2019-10-20] MEDS: busPIRone 5 MG TABLET PO SCH ×2 (08:18→18:09)
[2019-10-20] MEDS: AMLODIPINE BESYLATE 5 MG TABLET PO SCH (08:18)
[2019-10-20] MEDS: PHENOBARBITAL 30 MG TABLET PO SCH (08:18)
[2019-10-20] MEDS: FLUOXETINE HCL 20 MG CAPSULE PO SCH (08:19)
[2019-10-20 17:51] VITALS: BP 159/83
--- NOTE | 2019-10-20 19:05 | NUR ---
MS/RN OPENING NOTES: PATIENT RECEIVED RESTING IN BED A/O X 3. VERBALLY RESPONSIVE AND ABLE TO MAKE NEEDS KNOWN. STABLE ON RA WITH BREATHING EVEN AND UNLABORED, NO SOB NOTED. NO SIGNS OF ACUTE DISTRESS. IV LOCATED ON THE LEFT WRIST #22G, INTACT PATENT AND FLUSHING WELL. SAFETY PRECAUTIONS IN PLACE WITH BED IN LOWEST POSITION, CALL LIGHT WITHIN REACH, BREAKS ON, SIDE RAILS UP. WILL CONTINUE TO MONITOR THROUGHOUT THE SHIFT.
[2019-10-20 20:00] VITALS: BP 138/72
--- NOTE | 2019-10-20 21:52 | NUR ---
MS/RN NOTES: PT COMPLAINED OF SEVER PAIN RANGING FROM 8-10. VSS. ADMINISTERED DILAUDID 1MG IVP. WILL CONTINUE TO MONITOR.
[2019-10-21] MEDS: IV D5/0.45 NACL 1,000 ML IV PRN ×2 (06:08→22:34)
[2019-10-21] MEDS: LEVOTHYROXINE SODIUM 125 MCG TABLET PO SCH (06:42)
--- NOTE | 2019-10-21 07:50 | NUR ---
MS/RN CLOSING NOTES: PATIENT REMAINS RESTING IN BED A/O X 3. NO SIGNIFICANT CHANGES IN CONDITION. STABLE ON RA WITH BREATHING EVEN AND UNLABORED, NO SOB NOTED. NO SIGNS OF ACUTE DISTRESS. IV LOCATED ON THE LEFT WRIST #22G, RUNNING D5 1/2 NS @75MLS/HR. SAFETY PRECAUTIONS IN PLACE WITH BED IN LOWEST POSITION, CALL LIGHT WITHIN REACH, BREAKS ON, SIDE RAILS UP. ENDORSED TO CALEB SPAULDING FOR DIDIER.
[2019-10-21 08:00] VITALS: BP 160/84
--- NOTE | 2019-10-21 08:31 | NUR ---
MS RN NOTES PATIENT IN BED RESTING NO SOB OR ACUTE DISTRESS NOTED. PATIENT ALERT, ORIENTED X3. WITH KNEE IMMOBILIZER. PERIPHERAL INTACT, PATENT. SAFETY MEASURES IN PLACE. WILL CONTINUE TO MONITOR.
[2019-10-21] MEDS: PHENOBARBITAL 30 MG TABLET PO SCH (08:58)
[2019-10-21] MEDS: ASPIRIN 325 MG TABLET PO SCH (08:58)
[2019-10-21] MEDS: busPIRone 5 MG TABLET PO SCH ×2 (08:58→17:34)
[2019-10-21] MEDS: FLUOXETINE HCL 20 MG CAPSULE PO SCH (08:58)
[2019-10-21] MEDS: ARIPIPRAZOLE 5 MG TABLET PO SCH ×2 (08:58→17:34)
[2019-10-21] MEDS: AMLODIPINE BESYLATE 5 MG TABLET PO SCH (08:59)
[2019-10-21] MEDS: HYDROMORPHONE INJ 2 MG/ML DISP.SYRIN IV PRN ×2 (10:15→22:30)
[2019-10-21 16:00] VITALS: BP 149/84
--- NOTE | 2019-10-21 18:46 | NUR ---
MS RN NOTES PATIENT IN BED RESTING NO SOB OR ACUTE DISTRESS NOTED. ALL DUE MEDICATIONS ADMINISTERED. ALL NEEDS MET. PATIENT AWAITING FOR PLACEMENT. WILL ENDORSE CARE TO PM SHIFT.
--- NOTE | 2019-10-21 19:15 | NUR ---
PT MOVED TO ROOM 206-1 FROM ROOM 322-1
--- NOTE | 2019-10-21 19:35 | NUR ---
RN OPENING NOTES PT RECEIVED, A/OX3. ON ROOM AIR, BREATHING EVEN AND UNLABORED. DENIES SOB AND PAIN AT THIS TIME. IN NO ACUTE DISTRESS. HOB ELEVATED 30 DEGREES. RIGHT LEG IN IMMOBILIZER. BED IN LOW/LOCKED POSITION WITH CALL LIGHT IN REACH. SIDE RAILS UPX3. BED ALARM ON FOR SAFETY. WILL CONTINUE TO MONITOR
[2019-10-21 20:00] VITALS: BP 166/91
--- NOTE | 2019-10-21 21:00 | NUR ---
RIGHT LEG NEURO CHECK DONE. ABLE TO WIGGLE TOES. SKIN WARM TO TOUCH. POSITIVE PULSE WITH DOPPLER
--- NOTE | 2019-10-22 | NUR ---
RIGHT LEG NEURO CHECK DONE. ABLE TO WIGGLE TOES. SKIN WARM TO TOUCH. POSITIVE PULSE WITH DOPPLER
--- NOTE | 2019-10-22 04:00 | NUR ---
RIGHT LEG NEURO CHECK DONE. ABLE TO WIGGLE TOES. SKIN WARM TO TOUCH. POSITIVE PULSE WITH DOPPLER
[2019-10-22] MEDS: LEVOTHYROXINE SODIUM 125 MCG TABLET PO SCH (06:33)
--- NOTE | 2019-10-22 07:16 | NUR ---
RN CLOSING NOTES PT ASLEEP, RESPONSIVE TO NAME. ON ROOM AIR, BREATHING EVEN AND UNLABORED. IN NO ACUTE DISTRESS. DENIES PAIN AT THIS TIME. RIGHT LEG REMAINS IN IMMOBILIZER. NOTED WITH AUDITORY HALLUCINATIONS, NO BEHAVIORAL ISSUES. COMPLAINT WITH CARE, CALM AND COOPERATIVE. NO SIGNIFICANT CHANGES OVERNIGHT. ALL NEEDS MET AND ATTENDED. BED REMAINS IN LOW/LOCKED POSITION WITH CALL LIGHT IN REACH. SIDE RAILS UPX3. AND BED ALARM ON FOR SAFETY. ENDORSED TO DAY SHIFT RN DIDIER.
[2019-10-22 08:00] VITALS: BP 150/93
--- NOTE | 2019-10-22 08:00 | NUR ---
MS/RN - Assessment Patient in bed, A/O X 3, afebrile, denies pain at this time, no apparent distress, stable on room air. IVF D5 1/2 NS at 75 ml/hr infusing well on the RAC with no complications. Right knee immobilizer/ankle splint intact, moving bilateral toes simultaneously, negative for edema on LLE, moderate edema on the RLE, sensation from all peripheral extremities intact, positive pulse with doppler. Fall precautions maintained. Anticipate discharge today once placement is coordinated. Will continue with current plan of care.
[2019-10-22] MEDS: PHENOBARBITAL 30 MG TABLET PO SCH (08:21)
[2019-10-22] MEDS: FLUOXETINE HCL 20 MG CAPSULE PO SCH (08:21)
[2019-10-22] MEDS: AMLODIPINE BESYLATE 5 MG TABLET PO SCH (08:21)
[2019-10-22] MEDS: ARIPIPRAZOLE 5 MG TABLET PO SCH ×2 (08:21→16:44)
[2019-10-22] MEDS: busPIRone 5 MG TABLET PO SCH ×2 (08:21→16:44)
[2019-10-22] MEDS: ASPIRIN 325 MG TABLET PO SCH (08:21)
[2019-10-22 16:00] VITALS: BP 139/89
--- NOTE | 2019-10-22 19:11 | NUR ---
MS/RN - Assessment No significant change in condition seen. Right knee immobilizer/ankle splint intact, moving bilateral toes simultaneously, negative for edema on LLE, moderate edema on the RLE, sensation from all peripheral extremities intact, positive pulse with doppler. Still waiting for placement. Endorsed to night RN accordingly. Addendum: 10/22/19 at 1913 by TAMELA DOWD RN correction: End of shift summary instead of Assessment
--- NOTE | 2019-10-22 19:34 | NUR ---
MS/RN OPENING NOTES: PATIENT RECEIVED A/OX3. ON ROOM AIR, BREATHING EVEN AND UNLABORED. IN NO ACUTE DISTRESS. NO COMPLAINS OF PAIN AT THIS TIME. PT STATES SHE WANTS TO GO HOME. EXPLAINED TO PT THAT SHE CASE MANAGEMENT IS STILL LOOKING FOR A PLACEMENT FOR HER. PT STATES SHE UNDERSTAND AND SHE WILL STAY FOR THE NIGHT. NOTED WITH RIGHT LEG IN IMMOBILIZER. BED IN LOW/LOCKED POSITION WITH CALL LIGHT IN REACH. SIDE RAILS UPX3. BED ALARM ON FOR SAFETY. WILL CONTINUE TO MONITOR ACCORDINGLY.
[2019-10-22 20:00] VITALS: BP 147/85
[2019-10-22] MEDS: HYDROMORPHONE INJ 2 MG/ML DISP.SYRIN IV PRN (22:01)
[2019-10-22] MEDS: IV D5/0.45 NACL 1,000 ML IV PRN (22:07)
--- NOTE | 2019-10-23 07:24 | NUR ---
MS/RN CLOSING NOTES: PATIENT REMAINS RESTING IN BED A/O X 3. NO SIGNIFICANT CHANGES IN CONDITION. STABLE ON RA WITH BREATHING EVEN AND UNLABORED, NO SOB NOTED. NO SIGNS OF ACUTE DISTRESS. IV LOCATED ON THE LEFT HAND #22G, RUNNING D5 1/2 NS @75MLS/HR. RIGHT LEG NEURO CHECK DONE. ABLE TO WIGGLE TOES. SKIN WARM TO TOUCH. POSITIVE PULSE WITH DOPPLER. SAFETY PRECAUTIONS KEPT IN PLACE WITH BED IN LOWEST POSITION, CALL LIGHT WITHIN REACH, BREAKS ON, SIDE RAILS UP. ALL DUE MEDS GIVEN ORDERED. PAIN MANAGED THROUGHOUT THE NIGHT. ALL NURSING NEEDS MENTA ND RENDERED. ENDORSED TO RN FOR DIDIER.
--- NOTE | 2019-10-23 07:35 | NUR ---
MS RN NOTES RECEIVED PT IN BED, ASLEEP, EASILY AROUSED,A/O X3. PT TOLERATING RA, WITH NO ACUTE RESPIRATORY DISTRESS. PT DENIES ANY PAIN OR DISCOMFORT. PT DENIES ANY QUESTIONS AND CONCERN AT THIS TIME. IVF D5 1/2 NS @75ML/HR TO LEFT HAND G22, INTACT AND FLUID INFUSING WELL. PT KEPT COMFORTABLE IN BED. CALL LIGHT WITHIN REACH. PT'S BED IN LOWEST, LOCKED POSITION WITH SR X3. WILL CONTINUE PLAN OF CARE.
[2019-10-23 08:17] VITALS: BP 149/75
[2019-10-23] MEDS: LEVOTHYROXINE SODIUM 125 MCG TABLET PO SCH (08:39)
[2019-10-23] MEDS: ASPIRIN 325 MG TABLET PO SCH (08:39)
[2019-10-23] MEDS: AMLODIPINE BESYLATE 5 MG TABLET PO SCH (08:40)
[2019-10-23] MEDS: FLUOXETINE HCL 20 MG CAPSULE PO SCH (08:40)
[2019-10-23] MEDS: ARIPIPRAZOLE 5 MG TABLET PO SCH ×2 (08:40→17:06)
[2019-10-23] MEDS: PHENOBARBITAL 30 MG TABLET PO SCH (08:41)
[2019-10-23] MEDS: busPIRone 5 MG TABLET PO SCH ×2 (08:41→17:06)
[2019-10-23] MEDS: HYDROMORPHONE INJ 2 MG/ML DISP.SYRIN IV PRN (08:44)
--- NOTE | 2019-10-23 08:50 | NUR ---
MS RN NOTES PT YELLING AND SCREAMING FOR RIGHT LEG PAIN, REPORTED 10/10 PAIN SCALE. PRN DILAUDID 1MG GIVEN ORDERED, WILL CONTINUE TO MONITOR.
[2019-10-23] MEDS: IV D5/0.45 NACL 1,000 ML IV PRN (15:07)
[2019-10-23 16:56] VITALS: BP 127/79
--- NOTE | 2019-10-23 17:50 | NUR ---
MS RN NOTES PT AWARE ABOUT BEING DISCHARGE TO [facility]. REPORT GIVEN TO BALDEV/RN VIA PHONE. PT ABLE TO REVIEW AND SIGNED DISCHARGE INSTRUCTIONS AND INVENTORY LIST. ALL BELONGINGS WITH THE PT EXCEPT CIGARETTES THAT SHE DOESN'T WANT BACK. PT REFUSED SKIN ASSESSMENT AND PICTURES. PROTOCOL EXPLAINED, PT INSISTED TO REFUSE. AWAITING FOR AMBULANCE TO COME.
--- NOTE | 2019-10-23 18:40 | NUR ---
MS RN NOTES PT NOW AGREED TO TAKE PICTURES OF SKIN ISSUES. BILATERAL TOES AND LEFT KNEE TAKEN AND FILED IN THE CHART. NO NEW SKIN ISSUES NOTED.
--- NOTE | 2019-10-23 18:46 | NUR ---
MS RN NOTES PT REMAINS IN BED, AWAKE, A/O X3. PT TOLERATING RA, WITH NO ACUTE RESPIRATORY DISTRESS. PT DENIES ANY PAIN OR DISCOMFORT. PT DENIES ANY QUESTIONS AND CONCERN AT THIS TIME. IVF D5 1/2 NS @75ML/HR TO LEFT HAND G22, INTACT AND FLUID INFUSING WELL. PT AWARE REGARDING DISCHARGE AT 7:30PM. PT KEPT COMFORTABLE IN BED. CALL LIGHT WITHIN REACH. PT'S BED IN LOWEST, LOCKED POSITION WITH SR X3. WILL ENDORSE TO INCOMING NIGHT NURSE FOR DISCHARGE.
[2019-10-23 20:00] VITALS: BP 151/82
--- NOTE | 2019-10-23 20:10 | NUR ---
RN NOTES PT. LEFT VIA AMBULANCE, NOT IN DISTRESS, NO PAIN NOTED, V/S STABLE, PT. LEFT ON STABLE CONDITION
--- NOTE | 2019-10-23 20:10 | NUR ---
RN NOTES PT. LEFT VIA AMBULANCE, DENIES ANY PAIN, NO SOB, PT. LEFT ON STABLE CONDITION
== END 2019-10-24 | DRG 342 ==
LOC: ER 14:45 → EDBD 14:45 → ER 23:30 → MEDSG1 23:43 → MED 10-15 21:21 → MEDSG2 10-17 10:32 → MED 10-19 05:46 → MEDSG2 10-21 19:38
PROVIDERS: ADMIT Nurse Practitioner Acute Care; ATTEND Registered Nurse
PROC: 0SSCXZZ Reposition Right Knee Joint, External Approach (ICD-10-PCS; principal; 2019-10-14)
DX: S83.104A Unspecified dislocation of right knee, initial encounter (principal); S82.854A Nondisplaced trimalleolar fracture of right lower leg, initial encounter for closed fracture; X58.XXXA Exposure to other specified factors, initial encounter; G92 Toxic encephalopathy; F20.9 Schizophrenia, unspecified; E44.0 Moderate protein-calorie malnutrition; D72.829 Elevated white blood cell count, unspecified; E03.9 Hypothyroidism, unspecified; Z68.26 Body mass index [BMI] 26.0-26.9, adult; S72.401A Unspecified fracture of lower end of right femur, initial encounter for closed fracture; I10 Essential (primary) hypertension; F10.20 Alcohol dependence, uncomplicated; Y90.5 Blood alcohol level of 100-119 mg/100 ml; D68.59 Other primary thrombophilia; Z91.19 Patient's noncompliance with other medical treatment and regimen; Y92.410 Unspecified street and highway as the place of occurrence of the external cause; M85.80 Other specified disorders of bone density and structure, unspecified site; S02.609A Fracture of mandible, unspecified, initial encounter for closed fracture; S01.81XA Laceration without foreign body of other part of head, initial encounter; S22.39XA Fracture of one rib, unspecified side, initial encounter for closed fracture; V03.10XA Pedestrian on foot injured in collision with car, pick-up truck or van in traffic accident, initial encounter; V09.20XA Pedestrian injured in traffic accident involving unspecified motor vehicles, initial encounter; Y92.9 Unspecified place or not applicable; S82.101A Unspecified fracture of upper end of right tibia, initial encounter for closed fracture; Z74.09 Other reduced mobility
CPT/HCPCS: 36415; 71045-TC; 73552; 73560-TC; 73564-TC; 73600-TC; 75635-TC; 80048-TC; 80053-TC; 80076-TC; 80305; 83735-TC; 84100-TC; 84443-TC; 85025-TC; 85730-TC; 87081-TC; 97110-TC; 97112-TC; 97530-TC; G0378; G0480; J1170; J2270; J2405; J2704; J3490; J7042; J7050; Q9967; U0003-CS

== ENCOUNTER 2019-12-18 18:36 | Emergency (ER) | payer OTHER ==
[~2019-12-18] VITALS: Ht 154.9 cm; Wt 72.6 kg
[~2019-12-18 18:36] MED LIST: AMLO5TAB4 PO; ARIP10TA9 PO; BUSP15TA3 PO; DOCU-141 PO; FLUO20CA36 PO; LEVO125T PO; OXYC-128 PO; PHEN64.8 PO
--- NOTE | 2019-12-18 18:50 | NUR ---
ER BED 2 PT BIB GRILL ATTENDANT FROM [facility], PER REPORT FROM GRILL ATTENDANT, PT CAME FROM AN [facility]THO APPT TODAY AND HER ORTHO HAD RECOMMENDED FOR HER TO COME TO THE ER TO GET RE-CASTED. PT CURRENTLY HAS AN IMMOBILIZER ON THE RLE WITH CAST. DENIES ANY PAIN/DISCOMFORT. VS CHECKED. AWAITING MD NICE.
--- NOTE | 2019-12-18 19:50 | NUR ---
SPOKE WITH MICHEL FROM [facility] AND INFORMED PT WILL RETURN TO FACILITY
--- NOTE | 2019-12-18 20:08 | NUR ---
[facility] AMLINDYE BLS TO [facility] ETA [id number]
--- NOTE | 2019-12-18 21:08 | NUR ---
Patient discharged to home in stable condition. Written and verbal after care instructions given. Patient verbalizes understanding of instruction.
--- NOTE | 2019-12-18 21:10 | NUR ---
REPORT GIVEN TO AMMORGANTON. PT TRANSFERED BACK TO FACILITY.
[2019-12-18 21:11] VITALS: BP 132/82
== END 2019-12-18 21:11 | disposition home or self-care (01) ==
LOC: ER 18:40
DX: S82.891A Other fracture of right lower leg, initial encounter for closed fracture (principal); I10 Essential (primary) hypertension; Z79.899 Other long term (current) drug therapy; W22.8XXA Striking against or struck by other objects, initial encounter; Y93.89 Activity, other specified; Y92.89 Other specified places as the place of occurrence of the external cause; Y99.8 Other external cause status
CPT/HCPCS: 73610-TC